=== PATIENT | female | born 1990 | race Two or more races ===

== ENCOUNTER 2016-10-28 05:32 | Emergency (ER) | payer OTHER ==
[~2016-10-28] VITALS: Ht 160 cm; Wt 56.7 kg
[2016-10-28 05:32] VITALS: BP 136/78
--- NOTE | 2016-10-28 05:32 | NUR ---
PT BIB [facility] FOR MEDICAL CLEARANCE. PT DENIES SI AT THIS TIME. PT AMBULATED TO BED #6 IN [facility] WITH A STEADY GAIT.
--- NOTE | 2016-10-28 05:40 | NUR ---
URINE SAMPLE OBTAINED.
--- NOTE | 2016-10-28 05:41 | NUR ---
DR. VILLANUEVA IS AT THE BEDSIDE SPEAKING TO THE [employer] AND THE PT.
--- NOTE | 2016-10-28 05:53 | NUR ---
Patient discharged to [facility] [employer] IN [facility] in stable condition. Written and verbal after care instructions given. PT IS MEDICALLY CLEARED FOR BOOKING. PT AMBULATED OUT IN HANDCUFFS WITH A STEADY GAIT. VSS.
== END 2016-10-28 05:55 ==
LOC: ER 05:35
DX: Z00.8 Encounter for other general examination (principal); F10.129 Alcohol abuse with intoxication, unspecified; V49.40XA Driver injured in collision with unspecified motor vehicles in traffic accident, initial encounter; Y93.89 Activity, other specified; Y92.89 Other specified places as the place of occurrence of the external cause; Y99.9 Unspecified external cause status
CPT/HCPCS: A4606; Z7610